=== PATIENT | male | born 1990 | race Caucasian/White ===

== ENCOUNTER → 2017-04-24 | Outpatient (CLI) | payer OTHER ==
[~2017-04-24] MED LIST: ASCO-182 PO; BENZ100C4 PO; DICY-42 PO; DICY20TA70 PO; DOCU-416 PO; ESOM40CA42 PO; GOLYTE PO; IBUP600T22 PO; KET10 PO; LOR5 PO; LOR5/325 PO; METH4TAB66 PO; MULT1CAP59 PO; OMEP-218 PO; ONDA4TAB PO; ONDA4TAB97 PO; OXYC-865 PO; PANT40TA65 PO; POLY17PO25 PO; PROM-110 PO; RANI-318 PO; RANI-320 PO; RANI-324 PO; ROBC PO; SUCR1TAB85 PO
--- NOTE | 2017-04-24 12:54 | RADIOLOGY IMAGING REPORT ---
FACILITY: PATIENT NAME: Khadar Gonzalez : 1990 MR: [id number] V: [id number] EXAM DATE: ORDERING PHYSICIAN: BELEN WEEMS TECHNOLOGIST: Location: [facility] Patient: Khadar Gonzalez : 1990 Visit/Account:[id number] Date of Sevice: 04/24/2017 Examination: Nuclear medicine gastric emptying exam Comparison: None. History: Right upper quadrant pain with nausea and vomiting. Procedure: 2.2 mCi technetium 99m sulfur colloid was mixed with a standard meal of eggs and toast wi th water. The patient ingested the mixture while seated in an upright position. Multiple sequential g margie camera images were obtained of the upper abdomen. A computer-generated region of interest was pl aced around the stomach and the time activity curve for the stomach was derived; gastric emptying T1/ 2 and gastric retention at multiple time points are calculated. Findings: Image assessment: Normal filling of stomach, no evidence of gastroesophageal reflux and normal progr ession of radionuclide into proximal small bowel. Half life radionuclide in the stomach: 118 minutes (normal 20-45 minutes). Gastric retention: 4.0 hour: 0% (upper limit of normal: 10%) IMPRESSION: Although the stomach is completely empty by 4 hours, the findings are concerning for delayed gastric emptying with a significantly increased emptying half time. Report Dictated By: Aashish Sanchez MD at 04/24/2017 12:49 PM Report E-Signed By: Aashish Sanchez MD at 04/24/2017 12:51 PM WSN:[id number]
== END ==
LOC: NUC 04-21 13:43
PROVIDERS: ATTEND Surgery
DX: R10.11 Right upper quadrant pain (principal); R11.2 Nausea with vomiting, unspecified
CPT/HCPCS: 78264; A9541

== ENCOUNTER 2017-05-07 00:20 | Day surgery (SDC) | payer OTHER ==
[~2017-05-07] VITALS: Ht 185.4 cm; Wt 93.0 kg
[2017-05-07] MEDS ORDERED: MIDAZOLAM 2 MG/2 ML VIAL IVP ONE (13:00)
[2017-05-07] MEDS ORDERED: FAMOTIDINE 20 MG TAB PO ONE (13:00)
[2017-05-07] MEDS ORDERED: NORMOSOL R SOLN(*) 1000 ML BAG 1,000 ML IV PRN (13:00)
[2017-05-07] MEDS ORDERED: LIDOCAINE/SOD BICARB 8.4% SYR ID ONE (13:00)
[2017-05-07 13:03] LABS: PLATELET COUNT, AUTOMATED 244 K/uL (150-450)
[2017-05-07 13:15] VITALS: BP 120/84
[2017-05-07] MEDS ORDERED: fentaNYL CITR 100 MCG/2 ML AMP ONE ×2 (14:14→16:16)
[2017-05-07] MEDS ORDERED: MIDAZOLAM 2 MG/2 ML VIAL ONE (14:14)
[2017-05-07] MEDS ORDERED: DEXAMETHASONE SOD PHOS 10MG/ML ONE (14:15)
[2017-05-07] MEDS ORDERED: ONDANSETRON 4 MG/2 ML VIAL ONE (14:15)
[2017-05-07] MEDS ORDERED: PROPOFOL EMUL(*) 10MG/ML 20 ML 20 ML ONE (14:15)
[2017-05-07] MEDS ORDERED: LIDOCAINE MPF 1% 5 ML VIAL ONE (14:15)
[2017-05-07] MEDS ORDERED: ROPIVACAINE 0.5% 20 ML VIAL ONE (14:59)
[2017-05-07] MEDS ORDERED: DOCU-416 PO (16:11)
[2017-05-07] MEDS ORDERED: OXYC-865 PO (16:11)
--- NOTE | 2017-05-07 16:32 | Short(Outpt) Discharge Summary ---
Discharge Summary Reason for Hosp/Final Diag: (1) Subcutaneous mass of neck Status: Chronic Hospital Course & Plan: Subcutaneous mass excised from upper back/lower neck without problems. Departure Discharge to: Home, Self Care Discharge Instructions Home Meds Active Scripts Docusate Sodium (COLACE) 100 Mg Capsule, 1 CAP PO BID, #30 CAP 0 Refills TAKE WITH A FULL GLASS OF WATER Prov:BELEN WEEMS MD 05/07/17 Oxycodone Hcl/Acetaminophen (PERCOCET 5-325 MG TABLET) 1 Each Tablet, 1-2 TAB PO Q4H Y for PAIN, #30 TAB 0 Refills Prov:BELEN WEEMS MD 05/07/17 Pantoprazole Sodium (PANTOPRAZOLE SODIUM) 40 Mg Tablet., 1 TAB PO QAM, #30 TAB 0 Refills Prov:BELEN WEEMS MD 04/14/17 Ranitidine Hcl (RANITIDINE HCL) 300 Mg Tablet, 1 TAB PO QHS, #60 TAB 6 Refills Prov:BELEN WEEMS MD 03/31/17 Follow up Referrals: General Surgery - 05/25/17 @ Surgery, General with Belen Weems Md You have a follow up appointment scheduled with Dr. Weems on 05/25/17, at 3:45pm. Diet: Regular Activity: As Tolerated Special Instructions: You may remove the white surgical dressing on 05/09/17, then you can shower. After showering, leave the incision open to air but leave the steristrips on until they fall off on their own. Do not immerse the incision for 2 weeks. BELEN WEEMS MD May 07, 2017 16:32
--- NOTE | 2017-05-07 16:37 | Post Operative Progress Note ---
Post Operative Progress Note Date: May 07, 2017 Time: 16:31 Surgeon: Charity Dictation number: [id number] Anesthesia: LMA by Dr. Cates Pre-Op Diagnosis: Subcutaneous mass, upper back Post-Op Diagnosis: RUFUS Findings: C/W benign lipoma Procedure(s): Excision of subcutaneous mass from upper back Specimen Removed:(May be N/A): Subcutaneous mass from upper back Complications: None Fluids: See anesthesia record Estimated Blood Loss: Minimal Date OP Note Dictated: May 07, 2017 Time OP Note Dictated: 16:33 BELEN WEEMS MD May 07, 2017 16:37
[2017-05-07] MEDS ORDERED: KETOROLAC 30 MG/ML VIAL ONE (16:41)
[2017-05-07] MEDS ORDERED: ACETAMINOPHEN(*)1000 MG/100 ML 100 ML IVPB ONE (17:26)
[2017-05-07] MEDS ORDERED: PROMETHAZINE 25 MG/ML 1 ML AMP ONE (17:36)
[2017-05-07 17:59] VITALS: BP 120/82
[2017-05-07 18:15] VITALS: BP 118/85
[2017-05-07 18:17] VITALS: BP 114/82
--- NOTE | 2017-05-07 20:53 | OPERATIVE REPORT 1 ---
EVENT DATE: May 07, 2017 SURGEON: Wilfrido Nash MD ANESTHESIOLOGIST: Pieter Cates MD ANESTHESIA: LMA. PREOPERATIVE DIAGNOSIS Subcutaneous mass, upper back. POSTOPERATIVE DIAGNOSIS Subcutaneous mass, upper back. PROCEDURE PERFORMED Excision of subcutaneous mass, upper back. COMPLICATIONS None. CONDITION Stable. BLOOD LOSS Minimal. INDICATIONS This is a 26-year-old gentleman whom I had been seeing for GI symptoms. He commented that he had a mass on his upper back that has been present for years, but is slowly getting larger, and he was requesting to have it removed. DESCRIPTION OF PROCEDURE The patient was brought to operating room and placed supine on the operating table. LMA anesthesia was administered, and he was placed in the left lateral decubitus position and secured with a mejia bag and tape and security belt. His upper back was prepped and draped in a sterile fashion. A timeout was completed. I marked the skin overlying the mass, and I had done this in the preop area as well, but I adjusted the incision a little bit. I anesthetized the skin with 0.5% ropivacaine plain and then made a transverse incision. I dissected through the dermis and then subcutaneous fat. I went through a fascial layer, then identified the lipoma, and then dissected around it. It was polylobular and took some dissection to get all of the lobes out in one pieces. Ultimately, I was able to do this without problems and then passed the specimen off the field. The wound was irrigated and dried and made hemostatic. The fascial layer was closed with interrupted 3-0 Vicryl sutures, and then I placed another running layer of 3-0 Vicryl sutures in the subcutaneous tissue, and then the skin was closed with interrupted 3-0 Vicryl deep dermal sutures and 4-0 Monocryl in a running subcuticular suture. The skin was cleaned and dried, and Steri-Strips were applied, followed by a sterile surgical dressing. The patient was awakened and LMA removed. He was transported to the recovery room in stable condition having tolerated the procedure without any apparent problems. KIMANI
== END 2017-05-07 17:57 | disposition home or self-care (01) ==
LOC: OR 00:20
PROVIDERS: ATTEND Surgery
DX: R22.2 Localized swelling, mass and lump, trunk (principal)
CPT/HCPCS: 21932; 36415; 85025; J0131; J1100; J1885; J2001; J2250; J2405; J2550; J2704; J2795; J3010; J7030; 88305

== ENCOUNTER 2017-07-21 08:07 | Emergency (ER) | payer OTHER ==
[~2017-07-21 08:07] MED LIST changes: -RANI-324 PO; +RANI-366 PO
--- NOTE | 2017-07-21 08:22 | ER Report ---
History and Physical Time Seen By MD: 08:21 Hx. of Stated Complaint: pt reports two episodes of vomiting that started this morning HPI/ROS CHIEF COMPLAINT: nausea, vomiting, mid line abdominal discomfort in the setting of a prior diagnosis of gastroparesis HISTORY OF PRESENT ILLNESS: Patient is a 26-year-old male here with complaints of several episodes of nausea and vomiting this morning with coinciding abdominal discomfort which is vague. Abdomen is not distended, is soft with no focal tenderness, rebound or guarding. Patient reports that his prior diagnosis of gastroparesis which is currently not treated with medications. Last bowel movement was yesterday. He was well before going to bed last night. Patient denies headache, blurred vision, chest pain, shortness of breath, fevers, chills , rashes, dysuria. REVIEW OF SYSTEMS: Constitutional: No fever, no chills. Eyes: No discharge. ENT: No sore throat. Cardiovascular: No chest pain, no palpitations. Respiratory: No cough, no shortness of breath. Gastrointestinal: + mild midline vagua abdominal pain Genitourinary: No hematuria. Musculoskeletal: No back pain. Skin: No rashes. Neurological: No headache. Allergies: Coded Allergies: Penicillins (Unverified Allergy, Severe, ANAPHYLAXIS, 07/21/17) Home Meds Active Scripts Ondansetron (ZOFRAN ODT) 4 Mg Tab.rapdis, 4 MG PO Q6H Y for NAUSEA/VOMITING for 5 Days, #10 TAB.DEAN 0 Refills Prov:DOMONIQUE FUENTES DO 07/21/17 Discontinued Scripts Docusate Sodium (COLACE) 100 Mg Capsule, 1 CAP PO BID, #30 CAP 0 Refills TAKE WITH A FULL GLASS OF WATER Prov:BELEN WEEMS MD 05/07/17 Oxycodone Hcl/Acetaminophen (PERCOCET 5-325 MG TABLET) 1 Each Tablet, 1-2 TAB PO Q4H Y for PAIN, #30 TAB 0 Refills Prov:BELEN WEEMS MD 05/07/17 Pantoprazole Sodium (PANTOPRAZOLE SODIUM) 40 Mg Tablet.dr, 1 TAB PO QAM, #30 TAB 0 Refills Prov:BELEN WEEMS MD 04/14/17 Ranitidine Hcl (RANITIDINE HCL) 300 Mg Tablet, 1 TAB PO QHS, #60 TAB 6 Refills Prov:BELEN WEEMS MD 03/31/17 Hx Smoking: No Smoking Status: Never Smoker Exposure to Second Hand Smoke?: No Hx Substance Use Disorder: No Hx Alcohol Use: No Constitutional Vital Sign - Last 24 Hours 07/21/17 07/21/17 07/21/17 07/21/17 08:12 08:13 08:22 08:30 Temp 97.9 Pulse 66 58 Resp 16 B/P (MAP) 124/79 124/79 (94) 116/76 (89) Pulse Ox 94 95 O2 Delivery Room Air 07/21/17 07/21/17 07/21/17 07/21/17 08:37 08:42 08:57 09:00 Pulse 58 58 63 B/P (MAP) 113/77 (89) Pulse Ox 94 94 95 07/21/17 07/21/17 07/21/17 07/21/17 09:05 09:30 09:35 10:00 Pulse 55 54 B/P (MAP) 115/74 (88) 113/78 (90) Pulse Ox 95 07/21/17 07/21/17 07/21/17 07/21/17 10:05 10:24 10:29 10:30 Pulse 55 57 B/P (MAP) 109/77 (88) Pulse Ox 94 95 96 07/21/17 07/21/17 07/21/17 07/21/17 10:34 10:39 10:44 10:49 Pulse 58 57 55 Pulse Ox 95 95 95 Physical Exam General Appearance: The patient is alert, has no immediate need for airway protection and no signs of toxicity. [ ] Eyes: Pupils equal and round no pallor or injection. ENT, Mouth: Mucous membranes are moist. Respiratory: There are no retractions, lungs are clear to auscultation. Cardiovascular: Regular rate and rhythm. Gastrointestinal: + mild discomfort on deep palpation of the mid abdomen without rebound or guarding, non distended Neurological: No focal deficits Skin: Musculoskeletal: Neck is supple non tender. DIFFERENTIAL DIAGNOSIS: After history and physical exam differential diagnosis was considered for abdominal pain including but not limited to appendicitis, gastritis and urinary tract infection, viral gastroenteritis Medical Decision Making Data Points Result Diagram: 07/21/17 0900 07/21/17 0900 Laboratory Hematology Test 07/21/17 08:10 07/21/17 09:00 Urine Color Yellow Urine Clarity Clear Urine pH 8.0 pH (4.8-9.5) Urine Specific [place] 1.017 Urine Protein Negative mg/dL (NEGATIVE) Urine Glucose (UA) Negative mg/dL (NEGATIVE) Urine Ketones Negative mg/dL (NEGATIVE) Urine Blood Negative (NEGATIVE) Urine Nitrite Negative (NEGATIVE) Urine Bilirubin Negative (NEGATIVE) Urine Urobilinogen Negative mg/dL (0.2-1.9) Urine Leukocyte Esterase Negative (NEGATIVE) Urine RBC None /HPF (0-2/HPF) Urine WBC <1 /HPF (0-5/HPF) Urine Squamous Epithelial Cells None /LPF (</=FEW) Urine Bacteria Negative /HPF (NONE-FEW) Urine Mucus None /HPF (NONE-FEW) Red Blood Count 5.59 M/uL (4.00-5.60) Mean Corpuscular Volume 83.4 fL (80.0-96.0) Mean Corpuscular Hemoglobin 29.4 pg (26.0-33.0) Mean Corpuscular Hemoglobin Concent 35.3 g/dL (32.0-36.0) Red Cell Distribution Width 13.4 % (11.5-14.5) Mean Platelet Volume 7.2 fL (7.2-11.1) Neutrophils (%) (Auto) 71.5 % (39.4-72.5) Lymphocytes (%) (Auto) 17.5 % (17.6-49.6) Monocytes (%) (Auto) 7.2 % (4.1-12.4) Eosinophils (%) (Auto) 2.6 % (0.4-6.7) Basophils (%) (Auto) 1.2 % (0.3-1.4) Nucleated RBC Relative Count (auto) 0.1 /100WBC Neutrophils # (Auto) 4.8 K/uL (2.0-7.4) Lymphocytes # (Auto) 1.2 K/uL (1.3-3.6) Monocytes # (Auto) 0.5 K/uL (0.3-1.0) Eosinophils # (Auto) 0.2 K/uL (0.0-0.5) Basophils # (Auto) 0.1 K/uL (0.0-0.1) Nucleated RBC Absolute Count (auto) 0.01 K/uL Sodium Level 138 mmol/L (137-145) Potassium Level 4.0 mmol/L (3.5-5.0) Chloride Level 105 mmol/L (98-107) Carbon Dioxide Level 25 mmol/L (22-30) Blood Urea Nitrogen 15 mg/dl (9-21) Creatinine 0.90 mg/dl (0.66-1.25) Glomerular Filtration Rate Calc > 60.0 Random Glucose 95 mg/dl (75-110) Calcium Level 8.9 mg/dl (8.4-10.2) Total Bilirubin 0.3 mg/dl (0.2-1.3) Aspartate Amino Transf (AST/SGOT) 18 U/L (0-35) Alanine Aminotransferase (ALT/SGPT) 22 U/L (0-56) Alkaline Phosphatase 80 U/L (0-126) Total Protein 6.5 gm/dl (6.3-8.2) Albumin 3.7 g/dl (3.5-5.0) Lipase 51 U/L (23-300) Chemistry Test 07/21/17 08:10 07/21/17 09:00 Urine Color Yellow Urine Clarity Clear Urine pH 8.0 pH (4.8-9.5) Urine Specific Yale 1.017 Urine Protein Negative mg/dL (NEGATIVE) Urine Glucose (UA) Negative mg/dL (NEGATIVE) Urine Ketones Negative mg/dL (NEGATIVE) Urine Blood Negative (NEGATIVE) Urine Nitrite Negative (NEGATIVE) Urine Bilirubin Negative (NEGATIVE) Urine Urobilinogen Negative mg/dL (0.2-1.9) Urine Leukocyte Esterase Negative (NEGATIVE) Urine RBC None /HPF (0-2/HPF) Urine WBC <1 /HPF (0-5/HPF) Urine Squamous Epithelial Cells None /LPF (</=FEW) Urine Bacteria Negative /HPF (NONE-FEW) Urine Mucus None /HPF (NONE-FEW) White Blood Count 6.7 k/uL (4.5-11.0) Red Blood Count 5.59 M/uL (4.00-5.60) Hemoglobin 16.4 g/dL (14.0-18.0) Hematocrit 46.7 % (42.0-52.0) Mean Corpuscular Volume 83.4 fL (80.0-96.0) Mean Corpuscular Hemoglobin 29.4 pg (26.0-33.0) Mean Corpuscular Hemoglobin Concent 35.3 g/dL (32.0-36.0) Red Cell Distribution Width 13.4 % (11.5-14.5) Platelet Count 221 K/uL (150-450) Mean Platelet Volume 7.2 fL (7.2-11.1) Neutrophils (%) (Auto) 71.5 % (39.4-72.5) Lymphocytes (%) (Auto) 17.5 % (17.6-49.6) Monocytes (%) (Auto) 7.2 % (4.1-12.4) Eosinophils (%) (Auto) 2.6 % (0.4-6.7) Basophils (%) (Auto) 1.2 % (0.3-1.4) Nucleated RBC Relative Count (auto) 0.1 /100WBC Neutrophils # (Auto) 4.8 K/uL (2.0-7.4) Lymphocytes # (Auto) 1.2 K/uL (1.3-3.6) Monocytes # (Auto) 0.5 K/uL (0.3-1.0) Eosinophils # (Auto) 0.2 K/uL (0.0-0.5) Basophils # (Auto) 0.1 K/uL (0.0-0.1) Nucleated RBC Absolute Count (auto) 0.01 K/uL Glomerular Filtration Rate Calc > 60.0 Calcium Level 8.9 mg/dl (8.4-10.2) Total Bilirubin 0.3 mg/dl (0.2-1.3) Aspartate Amino Transf (AST/SGOT) 18 U/L (0-35) Alanine Aminotransferase (ALT/SGPT) 22 U/L (0-56) Alkaline Phosphatase 80 U/L (0-126) Total Protein 6.5 gm/dl (6.3-8.2) Albumin 3.7 g/dl (3.5-5.0) Lipase 51 U/L (23-300) Urinalysis Test 07/21/17 08:10 Urine Color Yellow Urine Clarity Clear Urine pH 8.0 pH (4.8-9.5) Urine Specific [place] 1.017 Urine Protein Negative mg/dL (NEGATIVE) Urine Glucose (UA) Negative mg/dL (NEGATIVE) Urine Ketones Negative mg/dL (NEGATIVE) Urine Blood Negative (NEGATIVE) Urine Nitrite Negative (NEGATIVE) Urine Bilirubin Negative (NEGATIVE) Urine Urobilinogen Negative mg/dL (0.2-1.9) Urine Leukocyte Esterase Negative (NEGATIVE) Urine RBC None /HPF (0-2/HPF) Urine WBC <1 /HPF (0-5/HPF) Urine Squamous Epithelial Cells None /LPF (</=FEW) Urine Bacteria Negative /HPF (NONE-FEW) Urine Mucus None /HPF (NONE-FEW) ED Course/Re-evaluation ED Course Patient is a 26-year-old male here with complaints of vague abdominal pain, nausea, vomiting in the setting of a prior diagnosis of gastroparesis which is not currently being treated with medical management. Patient reports several episodes of emesis this morning and associated nausea. Patient denies fevers, chills, chest pain, shortness breath, hematuria, hematochezia, melena, weakness. Patient labs were unremarkable, electrolytes were within normal limits. Patient was given Zofran and was able tolerate oral intake without issues. Patient was stable at time of discharge in no acute distress. Decision to Disposition Date: Jul 21, 2017 Decision to Disposition Time: 10:41 Depart Departure Latest Vital Signs Vital Signs Date Time Temp Pulse Resp B/P (MAP) Pulse Ox O2 Delivery O2 Flow Rate FiO2 07/21/17 10:49 95 07/21/17 10:44 55 07/21/17 10:30 109/77 (88) 07/21/17 08:12 97.9 16 Room Air Impression: Primary Impression: Nausea & vomiting Condition: Improved Disposition: HOME OR SELF-CARE Referrals: BELEN SOLIS MD (PCP) New Scripts Ondansetron (ZOFRAN ODT) 4 Mg Tab.rapdis 4 MG PO Q6H Y for NAUSEA/VOMITING for 5 Days, #10 TAB.DEAN 0 Refills Prov: DOMONIQUE FUENTES DO 07/21/17 Departure Forms: ER Transition Record, Medications Reconciliation, Off Work/ School Form, School or Work Release?: Work Number of days to be released: 1 Patient Portal Information Patient Instructions: Abdominal Pain (ED) Additional Instructions: Please drink plenty of fluids. Please return promptly if you develop worsening pain, or are unable to tolerate oral intake, develop fevers, chills, worsening weakness. DOMONIQUE FUENTES DO Jul 21, 2017 08:22
[2017-07-21] MEDS ORDERED: ONDANSETRON 4 MG ODT TABDP SL ONE (08:40)
[2017-07-21 09:11] LABS: PLATELET COUNT, AUTOMATED 221 K/uL (150-450)
[2017-07-21 10:30] VITALS: BP 109/77
[2017-07-21] MEDS ORDERED: ONDA4TAB PO (10:48)
== END 2017-07-21 10:53 | disposition home or self-care (01) ==
LOC: ER 08:16
DX: R11.2 Nausea with vomiting, unspecified (principal)
CPT/HCPCS: 36415; 81001; 83690; 85025; 99283; S0119; 82040; 82247; 82310; 82374; 82435; 82565; 82947; 84075; 84132; 84155; 84295; 84450; 84460; 84520